=== PATIENT | male | born 1995 | race Two or more races ===

== ENCOUNTER 2018-03-01 00:17 | Emergency (ER) | payer MEDICAID ==
[~2018-03-01] VITALS: Ht 160 cm; Wt 68.0 kg
[2018-03-01] MEDS ORDERED: NKM (00:24)
[2018-03-01 00:30] VITALS: BP 113/80
[2018-03-01] MEDS ORDERED: BUSPAR10 MG ORAL (00:39)
--- NOTE | 2018-03-01 00:39 | Emergency Room Report ---
History of Present Illness General Chief Complaint: Chest Pain Source: Patient Present Illness HPI This is a 22-year-old male with no past medical history. He presents with chief complaint of chest pain and palpitation. Onset tonight. He said is under a lot of stress with work, relationship and kids. He complaining of palpitation. Some chest tightness. No shortness of breath. Denies any alcohol or drug use. Denies any nausea vomiting. Nothing made it better. No radiation. No palpitation. No exertional component. Allergies: Coded Allergies: No Known Allergies (Unverified , 03/01/18) Patient History Past Medical History: see triage record, old chart reviewed Past Surgical History: none Pertinent Family History: none Social History: Reports: alcohol use - social Immunizations: other Reviewed Nursing Documentation: PMH: Agreed; PSxH: Agreed Nursing Documentation-PMH Past Medical History: No Stated History Review of Systems Eye: Denies: eye pain, blurred vision ENT: Denies: ear pain, nose congestion, throat swelling Respiratory: Denies: cough, shortness of breath Cardiovascular: Reports: chest pain, palpitations Gastrointestinal: Denies: abdominal pain, diarrhea, nausea, vomiting Musculoskeletal: Denies: back pain, joint pain Skin: Denies: rash Neurological: Denies: headache, numbness Endocrine: Denies: increased thirst, increased urine Hematologic/Lymphatic: Denies: easy bruising All Other Systems: negative except mentioned in HPI Physical Exam Vital Signs Date Time Temp Pulse Resp B/P (MAP) Pulse Ox O2 Delivery O2 Flow Rate FiO2 03/01/18 00:20 98.3 72 18 113/80 96 Room Air 98.2 vitals normal Sp02 EP Interpretation: reviewed, normal General Appearance: well appearing, no apparent distress, alert Head: normocephalic, atraumatic Eyes: bilateral eye PERRL, bilateral eye EOMI ENT: hearing grossly normal, normal pharynx Neck: full range of motion, supple, no meningismus Respiratory: chest non-tender, lungs clear, normal breath sounds Cardiovascular #1: regular rate, rhythm, no murmur Gastrointestinal: normal bowel sounds, non tender, no mass, no organomegaly, no bruit, non-distended Musculoskeletal: back normal, gait/station normal, normal range of motion Psychiatric: mood/affect normal Skin: warm/dry Medical Decision Making Diagnostic Impression: Primary Impression: Stress reaction Additional Impression: Palpitations ER Course This patient presents with palpitation and chest pain. Most likely stress related. When I saw him he complaining of palpitation but his heart rate was in the 70s. No evidence of ACS, PE, dissection. He said he felt better now. We'll discharge home. EKG Diagnostic Results Rate: normal Rhythm: NSR ST Segments: no acute changes Rhythm Strip Diag. Results Rhythm Strip Time: 00:38 EP Interpretation: yes Rate: 70 Rhythm: NSR, no PVC's, no ectopy Last Vital Signs Date Time Temp Pulse Resp B/P (MAP) Pulse Ox O2 Delivery O2 Flow Rate FiO2 03/01/18 00:20 98.3 72 18 113/80 96 Room Air 98.2 Status: improved Disposition: HOME, SELF-CARE Condition: Stable Scripts Buspirone Hcl* (BUSPAR*) 10 Mg Tablet 10 MG ORAL THREE TIMES A DAY, #30 TAB 0 Refills Prov: TERENCE OLIVA M.D. 03/01/18 Referrals: NOT CHOSEN IPA/,REFERRING (PCP) Additional Instructions: Follow-up your doctor in 7 days. Return if symptom worsen. If continue with palpitation, you will need a referral to see a netezza developer for a Holter monitor. Return if worse. TERENCE OLIVA M.D. March 01, 2018 00:39
[2018-03-01 00:45] VITALS: BP 113/80
--- NOTE | 2018-03-01 16:52 | Cardiology Report ---
APPROVED REPORT EKG Measurement Heart [id number] Normal sinus rhythm Normal ECG
== END 2018-03-01 00:45 | disposition home or self-care (01) ==
LOC: EMR 00:32
DX: F43.9 Reaction to severe stress, unspecified (principal); R00.2 Palpitations; R07.9 Chest pain, unspecified
CPT/HCPCS: 93005; 99283

== ENCOUNTER 2020-01-27 23:26 | Emergency (ER) | payer MEDICAID, OTHER ==
[~2020-01-27] VITALS: Ht 167.6 cm; Wt 63.5 kg
[~2020-01-27 23:26] MED LIST: BUSPAR10 MG ORAL; NKM
--- NOTE | 2020-01-27 23:45 | NUR ---
ED Nurse Note: Recieved pt from home, here with c/o severe 10/10 left abdominal pain for past 3 hours with emesis x 2 and nausea, pt appears very un-comfortable, denies diarrhea, fevers, or any other complaints or medical history, pt immediately gowned, urine sample collected and placed on monitoring, will resume care as ordered and closely monitor.
--- NOTE | 2020-01-27 23:57 | Emergency Room Report ---
History of Present Illness General Chief Complaint: Abdominal Pain Source: Patient Present Illness HPI This a 24-year-old male with no past medical history. He presents with complaint abdominal pain. Onset around 5 to 6 hours prior to arrival. Pain is mostly upper quadrant epigastric area. He has nausea and vomiting. No diarrhea. Pain is sharp and crampy. Nothing made it better. Nothing made it worse. No radiation. No urinary complaint. No fever chills. No cough or congestion. Allergies: Coded Allergies: No Known Allergies (Unverified , 03/01/18) COVID-19 Screening Contact w/high risk pt: No Recent Travel to affected area: No Experienced COVID-19 symptoms?: No Patient History Past Medical History: none, see triage record, old chart reviewed Past Surgical History: none Pertinent Family History: none Social History: Denies: smoking Immunizations: other Reviewed Nursing Documentation: PMH: Agreed; PSxH: Agreed Review of Systems Eye: Denies: eye pain, blurred vision ENT: Denies: ear pain, nose congestion, throat swelling Respiratory: Denies: cough, shortness of breath Cardiovascular: Denies: chest pain, palpitations Gastrointestinal: Reports: abdominal pain, nausea, vomiting; Denies: diarrhea Musculoskeletal: Denies: back pain, joint pain Skin: Denies: rash Neurological: Denies: headache, numbness Endocrine: Denies: increased thirst, increased urine Hematologic/Lymphatic: Denies: easy bruising All Other Systems: negative except mentioned in HPI Physical Exam Vital Signs Date Time Temp Pulse Resp B/P (MAP) Pulse Ox O2 Delivery O2 Flow Rate FiO2 01/27/20 23:29 98.6 74 19 123/75 (91) 99 Room Air Vitals normal Sp02 EP Interpretation: reviewed, normal General Appearance: well appearing, no apparent distress, alert Head: normocephalic, atraumatic Eyes: bilateral eye PERRL, bilateral eye EOMI ENT: hearing grossly normal, normal pharynx Neck: full range of motion, supple, no meningismus Respiratory: chest non-tender, lungs clear, normal breath sounds Cardiovascular #1: regular rate, rhythm, no murmur Gastrointestinal: no mass, no organomegaly, no bruit, non-distended, abnormal bowel sounds - Hyperactive bowel sounds, tenderness - Mild, diffuse mostly epigastric Musculoskeletal: back normal, normal range of motion, gait/station normal Psychiatric: mood/affect normal Medical Decision Making Diagnostic Impression: Primary Impression: Abdominal pain Qualified Codes: R10.13 - Epigastric pain ER Course Patient presents with abdominal pain mostly epigastric area. Could be an early gastroenteritis or peptic ulcer disease. CT scans unremarkable. Pain resolved now. Repeat exam normal. Will discharge home. CT/MRI/US Diagnostic Results CT/MRI/US Diagnostic Results : Imaging Test Ordered: CT abdomen pelvis Impression Read by radiologist. Fatty liver. Gallbladder large without finding to suggest acute cholecystitis. No findings to suggest acute appendicitis. Last Vital Signs Date Time Temp Pulse Resp B/P (MAP) Pulse Ox O2 Delivery O2 Flow Rate FiO2 01/27/20 23:29 98.6 74 19 123/75 (91) 99 Room Air Status: improved Disposition: HOME, SELF-CARE Condition: Stable Scripts Omeprazole Magnesium (PRILOSEC OTC) 20 Mg Tablet. 20 MG ORAL DAILY, #30 TAB Prov: Hosea Katz MD 01/28/20 Patient Instructions: Abdominal Pain, Adult Additional Instructions: Follow-up with your doctor in 3 to 5 days if not better. Return if symptoms worsen. Hosea Katz MD Jan 27, 2020 23:57
[2020-01-28] MEDS ORDERED: Ketorolac 30mg Inj IV ONE
[2020-01-28 00:03] LABS: APPEARANCE,URINE CLEAR; COLOR,URINE PALE YELLOW
[2020-01-28 00:04] LABS: BILIRUBIN, URINE NEGATIVE (NEGATIVE); GLUCOSE, URINE (UA) NEGATIVE (NEGATIVE); KETONES,URINE NEGATIVE (NEGATIVE); LEUKOCYTE ESTERASE ,URINE NEGATIVE (NEGATIVE); NITRITE,URINE NEGATIVE (NEGATIVE); PH,URINE 6.5 (4.5-8.0); PROTEIN,URINE 1+ (NEGATIVE); UROBILINOGEN,URINE NORMAL MG/DL (0.0-1.0)
[2020-01-28 00:09] LABS: BASOPHILS % (AUTO) 0.5 % (0.0-2.0); EOSINOPHILS % (AUTO) 0.3 % (0.0-3.0); HEMATOCRIT 45.6 % (42.0-52.0); HEMOGLOBIN 16.2 G/DL (14.2-18.0); LYMPHOCYTES % (AUTO) 12.3 % (20.0-45.0); MEAN CORPUSCULAR VOLUME 83 FL (80-99); MONOCYTES % (AUTO) 7.3 % (1.0-10.0); NEUTROPHILS % (AUTO) 79.7 % (45.0-75.0); PLATELET COUNT 204 K/UL (150-450); RED BLOOD COUNT 5.48 M/UL (4.70-6.10); RED CELL DISTRIBUTION WIDTH 11.3 % (11.6-14.8); WHITE BLOOD COUNT 13.3 K/UL (4.8-10.8)
[2020-01-28 00:19] LABS: ANION GAP 11 mmol/L (5-15); BLOOD UREA NITROGEN 17 mg/dL (7-18); CARBON DIOXIDE 26 MMOL/L (21-32); CHLORIDE 103 MMOL/L (98-107); CREATININE 0.9 MG/DL (0.55-1.30); POTASSIUM 3.6 MMOL/L (3.5-5.1); SODIUM 140 MMOL/L (136-145)
[2020-01-28 00:20] VITALS: BP 117/61
--- NOTE | 2020-01-28 00:21 | Diagnostic Imaging Report ---
EXAM: CT Abdomen and Pelvis Without Intravenous Contrast CLINICAL HISTORY: ABD PAIN TECHNIQUE: Axial computed tomography images of the abdomen and pelvis without intravenous contrast. CTDI is 6 mGy and DLP is 339 mGy-cm. One or more of the following dose reduction techniques were used: automated exposure control, adjustment of the mA and/or kV according to patient size, use of iterative reconstruction technique. Coronal and sagittal reformatted images were created and reviewed. COMPARISON: No relevant prior studies available. FINDINGS: Lung bases: Unremarkable. No mass. No consolidation. ABDOMEN: Liver: Hepatic steatosis, correlate to exclude steatohepatitis. Gallbladder and bile ducts: Gallbladder sludge without findings to suggest acute cholecystitis. No ductal dilation. Pancreas: Unremarkable. No ductal dilation. Spleen: Unremarkable. No splenomegaly. Adrenals: Unremarkable. No mass. Kidneys and ureters: Unremarkable. No obstructing stones. No hydronephrosis. Stomach and bowel: Unremarkable. No obstruction. No mucosal thickening. PELVIS: Appendix: No findings to suggest acute appendicitis, appendix demonstrates fluid in gas contents with internal appendicoliths without sarah enlargement measuring maximally 0.8 cm diameter and without periappendiceal fat stranding. Correlate with presentation. Bladder: Unremarkable. No stones. Reproductive: Unremarkable as visualized. ABDOMEN and PELVIS: Intraperitoneal space: Unremarkable. No free air. No significant fluid collection. Bones/joints: No acute fracture. No dislocation. Soft tissues: Unremarkable. Vasculature: Unremarkable. No abdominal aortic aneurysm. Lymph nodes: Unremarkable. No enlarged lymph nodes. IMPRESSION: 1. No acute abnormality definitively identified to account for patient presentation. 2. Hepatic steatosis, correlate to exclude steatohepatitis. 3. Gallbladder sludge without findings to suggest acute cholecystitis. 4. No findings to suggest acute appendicitis, appendix demonstrates fluid in gas contents with internal appendicoliths without sarah enlargement measuring maximally 0.8 cm diameter and without periappendiceal fat stranding. Correlate with presentation. <MYCVCSECTION> Communications: 01/28/20 00:22 Call Doctor Regarding Other, called Michael PATRICK on 01/27 00: 22 (-07:00)
[2020-01-28 00:23] LABS: ALANINE AMINOTRANSFERASE 218 U/L (12-78); ALBUMIN 4.5 G/DL (3.4-5.0); ALBUMIN/GLOBULIN RATIO 1.2 (1.0-2.7); ALKALINE PHOSPHATASE 94 U/L (46-116); ASPARTATE AMINO TRANSFERASE 60 U/L (15-37); BILIRUBIN,TOTAL 0.4 MG/DL (0.2-1.0)
[2020-01-28] MEDS ORDERED: Pantoprazole Inj IVP ONE (00:30)
[2020-01-28] MEDS ORDERED: Morphine Sulfate 4mg/ml Inj (IV USE ONLY) IVP ONE (00:30)
--- NOTE | 2020-01-28 00:35 | NUR ---
ED Nurse Note: Pt returned from imaging and resting in like position, also c/o pain meds not effective, ZMD informed and pt re-medicated, v/s stable, will continue to montior for med effectiveness or any acute changes.
[2020-01-28 01:15] VITALS: BP 113/74
[2020-01-28] MEDS ORDERED: PRILOSEC OTC20 MG ORAL (01:15)
--- NOTE | 2020-01-28 01:20 | NUR ---
ER DISCHARGE NOTE: Patient is cleared to be discharged per ERMD, pt is aox4, on room air, with stable vital signs. pt was given dc and prescription instructions, pt was able to verbalize understanding, pt id band and iv site removed without complications. pt is able to ambulate with steady gait. pt took all belongings.pt with to drive.
[2020-01-28 01:30] VITALS: BP 113/74
== END 2020-01-28 01:30 | disposition home or self-care (01) ==
LOC: EMR 01-28 00:05
DX: R10.13 Epigastric pain (principal); R11.2 Nausea with vomiting, unspecified; K76.0 Fatty (change of) liver, not elsewhere classified
CPT/HCPCS: 36415; 74176; 80053; 81003; 83690; 85025; 96361; 96374; 96375; J1885; J2270; J2405; J7030; S0164; Z7502; 99284

== ENCOUNTER 2020-11-05 02:22 | Emergency (ER) | payer MEDICAID, OTHER ==
[~2020-11-05] VITALS: Ht 170.2 cm; Wt 77.1 kg
[~2020-11-05 02:22] MED LIST changes: +PRILOSEC OTC20 MG ORAL
--- NOTE | 2020-11-05 02:30 | NUR ---
ED Nurse Note: Pt walked in from home. He is axox4, his vitals are stable on RA as docuemtned, He is ambulatory with a steady gait. He is co abdominal pain since 22:30 1/4 last night. He has abdominal pain in left upper quadrent. He states that hen was vomitting at home. Denies having diarreah. Labs sent, ER MD at bedside.
--- NOTE | 2020-11-05 02:32 | Emergency Room Report ---
History of Present Illness General Chief Complaint: Abdominal Pain Source: Patient Present Illness HPI 25-year-old male with no past medical history. He presents with chief plaint abdominal pain. Onset was about 5 hours ago. Pain localized to the left upper quadrant. Pain occur an hour after eating. No fever chills but has nausea and vomiting. Pain is 9 out of 10. No diarrhea. No trauma. 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 History Past Medical History: see triage record, old chart reviewed Past Surgical History: none Pertinent Family History: none Social History: Denies: smoking Immunizations: other Reviewed Nursing Documentation: PMH: Agreed; PSxH: Agreed Nursing Documentation-PMH Past Medical History: No Stated History Review of Systems Eye: Denies: eye pain, blurred vision ENT: Denies: ear pain, nose congestion, throat swelling Respiratory: Denies: cough, shortness of breath Cardiovascular: Denies: chest pain, palpitations Gastrointestinal: Reports: abdominal pain, nausea, vomiting; Denies: diarrhea Musculoskeletal: Denies: back pain, joint pain Skin: Denies: rash Neurological: Denies: headache, numbness Endocrine: Denies: increased thirst, increased urine Hematologic/Lymphatic: Denies: easy bruising All Other Systems: negative except mentioned in HPI Physical Exam Vital Signs Date Time Temp Pulse Resp B/P (MAP) Pulse Ox O2 Delivery O2 Flow Rate FiO2 11/05/20 02:24 98.4 88 16 107/71 (83) 98 Room Air vitals normal Sp02 EP Interpretation: reviewed, normal General Appearance: well appearing, no apparent distress, alert Head: normocephalic, atraumatic Eyes: bilateral eye PERRL, bilateral eye EOMI ENT: hearing grossly normal, normal pharynx Neck: full range of motion, supple, no meningismus Respiratory: chest non-tender, lungs clear, normal breath sounds Cardiovascular #1: regular rate, rhythm, no murmur Gastrointestinal: normal bowel sounds, non tender, no mass, no organomegaly, no bruit, non-distended Musculoskeletal: back normal, normal range of motion, gait/station normal Psychiatric: mood/affect normal Medical Decision Making Diagnostic Impression: Primary Impression: Abdominal pain Qualified Codes: R10.12 - Left upper quadrant pain Additional Impression: Vomiting Qualified Codes: R11.2 - Nausea with vomiting, unspecified ER Course This patient presents with left upper quadrant abdominal pain. No evidence of any pancreatitis. Liver enzymes elevated but he has no pain in the right upper quadrant. He has no pain in the right lower quadrant. No evidence of acute appendicitis. CT did show elongated appendix but with normal wall and no evidence of any inflammation. This is unchanged from before. CT/MRI/US Diagnostic Results CT/MRI/US Diagnostic Results : Imaging Test Ordered: CT abdomen pelvis Impression Read by radiologist. Appendix measures up to 12 mm in diameter. However no periappendiceal inflammation. It is noted that the appendix is a very similar appearance in prior study. Last Vital Signs Date Time Temp Pulse Resp B/P (MAP) Pulse Ox O2 Delivery O2 Flow Rate FiO2 11/05/20 02:24 98.4 88 16 107/71 (83) 98 Room Air Status: improved Disposition: HOME, SELF-CARE Condition: Stable Patient Instructions: Abdominal Pain, Adult Additional Instructions: Follow-up with your doctor in 2-3 days. Return for fever, increasing pain, pain localized to the right lower quadrant or not better in 12 to 24 hours. Hosea Katz MD Nov 05, 2020 02:32
[2020-11-05 02:42] LABS: HEMATOCRIT 46.7 % (42.0-52.0); HEMOGLOBIN 15.9 G/DL (14.2-18.0); MEAN CORPUSCULAR VOLUME 87 FL (80-99); PLATELET COUNT 212 K/UL (150-450); RED BLOOD COUNT 5.39 M/UL (4.70-6.10); RED CELL DISTRIBUTION WIDTH 13.2 % (11.6-14.8); WHITE BLOOD COUNT 10.3 K/UL (4.8-10.8)
[2020-11-05] MEDS ORDERED: HYDROmorphone 1mg/ml Carpuject IVP ONE (02:45)
[2020-11-05 02:55] VITALS: BP 116/80
[2020-11-05 03:02] LABS: ANION GAP 9 mmol/L (5-15); BLOOD UREA NITROGEN 17 mg/dL (7-18); CALCIUM 9.5 MG/DL (8.5-10.1); CARBON DIOXIDE 27 MMOL/L (21-32); CHLORIDE 100 MMOL/L (98-107); POTASSIUM 3.8 MMOL/L (3.5-5.1); SODIUM 136 MMOL/L (136-145)
[2020-11-05 03:07] LABS: ALANINE AMINOTRANSFERASE 215 U/L (12-78); ALBUMIN 4.6 G/DL (3.4-5.0); ALBUMIN/GLOBULIN RATIO 1.1 (1.0-2.7); ALKALINE PHOSPHATASE 111 U/L (46-116); ASPARTATE AMINO TRANSFERASE 76 U/L (15-37); BILIRUBIN,TOTAL 0.7 MG/DL (0.2-1.0)
--- NOTE | 2020-11-05 03:25 | NUR ---
ED Nurse Note: Pt is back from CT
[2020-11-05 03:41] LABS: APPEARANCE,URINE CLEAR; BILIRUBIN, URINE NEGATIVE (NEGATIVE); COLOR,URINE PALE YELLOW; GLUCOSE, URINE (UA) NEGATIVE (NEGATIVE); KETONES,URINE 3+ (NEGATIVE); LEUKOCYTE ESTERASE ,URINE NEGATIVE (NEGATIVE); NITRITE,URINE NEGATIVE (NEGATIVE); PH,URINE 6 (4.5-8.0); PROTEIN,URINE 1+ (NEGATIVE); UROBILINOGEN,URINE NORMAL MG/DL (0.0-1.0)
--- NOTE | 2020-11-05 03:44 | NUR ---
ED Nurse Note: Pt is resting comfortably on room air. States that pain has gotten better. No signs of distress.
--- NOTE | 2020-11-05 04:15 | Diagnostic Imaging Report ---
EXAM: CT Abdomen and Pelvis Without Intravenous Contrast CLINICAL HISTORY: ABD PAIN TECHNIQUE: Axial computed tomography images of the abdomen and pelvis without intravenous contrast. CTDI is 8.60 mGy and DLP is 465.80 mGy-cm. One or more of the following dose reduction techniques were used: automated exposure control, adjustment of the mA and/or kV according to patient size, use of iterative reconstruction technique. COMPARISON: 01/27/2020 FINDINGS: Lung bases: Mild bibasilar atelectasis. ABDOMEN: Liver: There is severe diffuse fatty infiltration of the liver. There is no evidence of a focal liver lesion. Gallbladder and bile ducts: Unremarkable. No calcified stones. No ductal dilation. Pancreas: Unremarkable. No ductal dilation. Spleen: Unremarkable. No splenomegaly. Adrenals: Unremarkable. No mass. Kidneys and ureters: Unremarkable. No obstructing stones. No hydronephrosis. Stomach and bowel: Unremarkable. No obstruction. No mucosal thickening. PELVIS: Appendix: The appendix measures up to 12 mm in diameter. However, much of the appendix contains air with a thin wall. There is no periappendiceal inflammation. Small appendicoliths are noted at the distal end/tip, measuring up to 6 mm. It is noted that the appendix had a very similar appearance on the prior study although it only measures 8 mm in maximum diameter. However, similarly, there was no periappendiceal inflammation. It is felt that the patient has a normal, prominent appendix. There is no finding to suggest acute inflammation/acute appendicitis. Bladder: Unremarkable. No stones. Reproductive: Unremarkable as visualized. ABDOMEN and PELVIS: Intraperitoneal space: Unremarkable. No free air. No significant fluid collection. Bones/joints: No acute fracture. No dislocation. Soft tissues: Unremarkable. Vasculature: Unremarkable. No abdominal aortic aneurysm. Lymph nodes: Unremarkable. No enlarged lymph nodes. IMPRESSION: 1. The appendix is dilated, up to 12 mm but contains a large amount of air, outlining a normal/thin wall. There are no periappendiceal inflammatory changes to suggest acute inflammation. It is noted that the appendix had a very similar appearance on the previous study-indicating that this may represent a normal appendix for this patient. Nevertheless, correlation with clinical/laboratory findings is recommended to assess for any possibility of acute appendicitis. Further management should be based upon clinical findings. 2. Stable severe fatty filtration liver. Otherwise unremarkable study.
[2020-11-05 04:45] VITALS: BP 116/88
--- NOTE | 2020-11-05 04:47 | NUR ---
ER DISCHARGE NOTE: Patient is cleared to be discharged per ERMD, pt is aox4, on room air, with stable vital signs. pt was given dc and prescription instructions, pt was able to verbalize understanding, pt id band and iv site removed without complications. pt is able to ambulate with steady gait. pt took all belongings. Pt has no complaints of pain. Pt left with in private car.
== END 2020-11-05 04:48 | disposition home or self-care (01) ==
LOC: EMR 02:58
DX: R10.12 Left upper quadrant pain (principal); R11.2 Nausea with vomiting, unspecified
CPT/HCPCS: 36415; 74176; 80053; 81003; 83690; 85025; 96361; 96374; 96375; J1170; J2405; J7030; Z7502; 99284